=== PATIENT | male | born 1990 | race Caucasian/White ===

== ENCOUNTER 2020-01-29 19:33 | Emergency (ER) | payer BC ==
[2020-01-29 19:46] VITALS: BP 154/100; PULSE 70
[2020-01-29] MEDS ORDERED: Cyclobenzaprine 10 MG Tab PO ONE (20:04)
[2020-01-29] MEDS ORDERED: HYDROmorphone 0.5 MG/0.5 ML Syringe IM ONE (20:04)
[2020-01-29] MEDS ORDERED: Ketorolac 60 MG/2 ML SDV IM ONE (20:04)
--- NOTE | 2020-01-29 20:13 | EDM.PDOC ---
ED HPI GENERAL MEDICAL PROBLEM - General Chief Complaint: Back Pain or Injury Stated Complaint: BACK PAIN AND FEET NUMB Time Seen by Provider: 01/29/20 19:41 Source of Information: Reports: Patient History Limitations: Reports: No Limitations - History of Present Illness INITIAL COMMENTS - FREE TEXT/NARRATIVE: The patient presents with low back pain. This started this morning. He was at work and he pushed something with his foot. He has pain more in the lower right back. He has numbness in both feet. He has no weakness. He has no bowel or bladder problems. He has not had trouble with is back before. He did go to the chiropractor and that did not help. Onset: Sudden Duration: Hour(s): Location: Reports: Back (lower) Quality: Reports: Sharp Severity: Moderate Improves with: Reports: Immobilization Worsens with: Reports: Movement Associated Symptoms: Reports: No Other Symptoms Lower Back Pain Score (Numeric/FACES): 8 - Related Data Allergies Allergy/AdvReac Type Severity Reaction Status Date / Time No Known Allergies Allergy Verified 01/29/20 19:46 Home Meds: Home Meds Cyclobenzaprine [Flexeril] 10 mg PO TID PRN #20 tab 01/29/20 [Rx] lisinopriL [Lisinopril] 20 mg PO DAILY 01/29/20 [History] Past Medical History - Past Health History Medical/Surgical History: Denies Medical/Surgical History Cardiovascular History: Reports: Hypertension Gastrointestinal History: Reports: GERD - Past Surgical History HEENT Surgical History: Reports: Tonsillectomy Social & Family History - Family History Family Medical History: Noncontributory - Tobacco Use Smoking Status *Q: Never Smoker - Caffeine Use Caffeine Use: Reports: Energy Drinks ED ROS GENERAL - Review of Systems Review Of Systems: See Below Constitutional: Reports: No Symptoms HEENT: Reports: No Symptoms Respiratory: Reports: No Symptoms Cardiovascular: Reports: No Symptoms Endocrine: Reports: No Symptoms GI/Abdominal: Reports: No Symptoms : Reports: No Symptoms Musculoskeletal: Reports: Back Pain Skin: Reports: No Symptoms Neurological: Reports: Numbness (both feet) ED EXAM,LOWER BACK PAIN/INJURY - Physical Exam Exam: See Below Exam Limited By: No Limitations General Appearance: Alert, No Apparent Distress Ears: Normal External Exam Nose: Normal Inspection Head: Atraumatic, Normocephalic Neck: Normal Inspection Respiratory/Chest: No Respiratory Distress, Lungs Clear, Normal Breath Sounds Cardiovascular: Regular Rate, Rhythm, No Edema, No Murmur GI/Abdominal: Soft, Non-Tender, No Organomegaly, No Mass Back Exam: Other (Pain upon palpation to the right lower back) Extremities: Normal Inspection Neurological: Alert, Other (Mild numbness to both feet) Course - Vital Signs Last Recorded V/S: Last Vital Signs Temp 96.8 F L 01/29/20 19:43 Pulse 70 01/29/20 19:43 Resp 16 01/29/20 19:43 BP 154/100 H 01/29/20 19:43 Pulse Ox 98 01/29/20 19:43 - Orders/Labs/Meds Meds: Medications Discontinued Medications Generic Name Dose Route Start Last Admin Trade Name Freq PRN Reason Stop Dose Admin Cyclobenzaprine HCl 10 mg 01/29/20 20:04 Flexeril PO 01/29/20 20:05 ONETIME ONE Hydromorphone HCl 0.5 mg 01/29/20 20:04 Dilaudid IM 01/29/20 20:05 ONETIME ONE Ketorolac Tromethamine 60 mg 01/29/20 20:04 Toradol IM 01/29/20 20:05 ONETIME ONE - Re-Assessments/Exams Free Text/Narrative Re-Assessment/Exam: 01/29/20 20:11 I ordered dilaudid 0.5mg IM, toradol 60mg IM and flexeril 10mg PO. I will get him a prescription for more flexeril. Departure - Departure Time of Disposition: 20:15 Disposition: Home, Self-Care 01 Condition: Good Clinical Impression: Low back pain Qualifiers: Chronicity: acute Back pain laterality: right Sciatica presence: without sciatica Qualified Code(s): M54.5 - Low back pain - Discharge Information *PRESCRIPTION DRUG MONITORING PROGRAM REVIEWED*: No *COPY OF PRESCRIPTION DRUG MONITORING REPORT IN PATIENT MARY: No Prescriptions: Cyclobenzaprine [Flexeril] 10 mg PO TID PRN #20 tab PRN Reason: Pain Referrals: Stevenson Jacobs Jr, MD [Primary Care Provider] - 1 Week Forms: ED Department Discharge, ED Return to Work/School Form Additional Instructions: Ice your back for 15 minutes 3 times per day for 2 days. Take motrin or aleve for pain. You may also take flexeril 3 times per day as needed. Follow up with your doctor if you are not better. Please return if you are worse. Sepsis Event Note (ED) - Evaluation Sepsis Screening Result: No Definite Risk - Focused Exam Vital Signs: Vital Signs Temp Pulse Resp BP Pulse Ox 01/29/20 19:43 96.8 F L 70 16 154/100 H 98
== END 2020-01-29 20:33 | disposition home or self-care (01) ==
LOC: JD.ED 19:33
DX: M54.5 Low back pain (principal); R20.0 Anesthesia of skin; I10 Essential (primary) hypertension; Z90.89 Acquired absence of other organs; Z79.899 Other long term (current) drug therapy
CPT/HCPCS: 96372; 99283; A9270; J1170; J1885